=== PATIENT | female | born 1965 | race Caucasian/White ===

== ENCOUNTER 2017-02-09 16:42 | Emergency (ER) | payer BC ==
[2017-02-09] MEDS ORDERED: KETOROLAC TROMETHAMINE 60 MG/2 ML VIAL IM ONE ×2 (17:27→17:39)
--- NOTE | 2017-02-09 17:34 | ERNOTE ---
Abdominal HPI - Narrative Date of Service: 02/09/17 - General Chief Complaint: Abdominal Pain Time Seen by Provider: 02/09/17 17:08 Source: patient Exam Limitations: no limitations - Immun/Allergies/Home Medications Immunizatons: IMMUNIZATION HX Immunizations Up to Date Yes History of Influenza Vaccine No Allergies/Adverse Reactions: Allergies No Known Allergies Allergy (Verified 02/09/17 17:04) Home Medications: HOME MEDICATIONS Naproxen [Naprosyn] 500 mg PO BID PRN #60 tab 02/09/17 [Last Taken Unknown] - History of Present Illness Narrative: Pt. comes in with c/o burning with urination, decreased output, frequency, and abdominal pain that worsens with lying flat. Pt. denies any CP, SOB, vomiting, diarrhea, constipation, fever, alleviating factors despite going to the walk in clinic and getting treatment for a UTI just prior to arrival. Review of Systems - Review of Systems Constitutional: Present: no symptoms reported. Absent: recent illness, fever, chills, weakness, fatigue, malaise EYE: Present: no symptoms reported ENT: Present: no symptoms reported Respiratory: Present: no symptoms reported. Absent: shortness of breath, cough , wheezing Cardiology: Present: no symptoms reported. Absent: chest pain, palpitations, edema Gastrointestinal/Abdominal: Present: nausea, abdominal pain - suprapubic radiates to upper, other - distention. Absent: vomiting, diarrhea, constipation - LBM today Genitourinary: Present: no symptoms reported. Absent: frequency, pain, dysuria , decreased urinary output Musculoskeletal: Present: no symptoms reported. Absent: back pain, joint pain Skin: Present: no symptoms reported Neurological: Present: no symptoms reported. Absent: headache, dizziness/light- headedness, weakness, numbness All Other Systems: All systems neg except as marked - Patient's Past Medical History Patient History - Medical: No pertinent hx Patient History - Cardiac/Respiratory: No pertinent hx Patient History - Cancer: No Hx of Cancer Patient History - Surgical Procedures: LMP (females 10-50): Menopausal - Social History Living Situations: spouse Psych History: No pertinent hx Smoking Status: Never smoker - Immunizations Immunizations Up to Date: Yes History of Influenza Vaccine: No Physical Exam - Physical Exam General Appearance: Present: wd/wn, alert, no apparent distress Eye Exam: Normal inspection: bilateral, PERRL: bilateral, EOMI: bilateral Ears, Nose, Throat: Present: normal ENT inspection, normal pharynx Neck: Present: normal inspection, nontender. Absent: lymphadenopathy (R), lymphadenopathy (L) Respiratory: Present: no respiratory distress, normal breath sounds, no accessory muscle use, chest nontender, lungs clear Cardiovascular/Chest: Present: regular rate, rhythm, no murmur, normal peripheral pulses Gastrointestinal/Abdominal: Present: normal bowel sounds, no organomegaly, tenderness - Suprapubic, distended - mild Back Exam: Present: normal inspection, normal range of motion, no CVA tenderness , no vertebral tenderness Extremity Exam: Present: normal inspection, non-tender, normal range of motion, no edema Neurological Exam: Present: alert, oriented, normal mood/affect, no motor/ sensory deficits, 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 Absent: pallor, skin rash ED Progress - Date and Time Seen: Date and Time: 02/09/17 22:[address] Curran and he feels that pt. needs treatment at [facility] and that I should consult them for further treatment plan as this could be cancerous. 02/09/17 23:[address] Sullivan at [facility] and she states that they will coordinate getting her scheduled for Biopsies, follow up appointments and more labs and imaging this week and call pt. to set up these appointments. - Results and Orders Patient's Lab Results:: I have reviewed the patient's lab results. - Vital Signs Patient's Vital Signs:: I have reviewed the patient's vital signs. Vital Signs: Vital Signs 02/09/17 16:56 Temperature 36.7 C Pulse Rate 97 Respiratory 16 Rate Blood Pressure 166/97 O2 Sat by Pulse 100 Oximetry - EKG EKG: other - sinus tach no acute EKG read: Reviewed by me EKG Comments: interp by dr bell - CT/Ultrasound CT/Ultrasound Narrative: 13.2 x 10.8 x 9.6 cm septated left pelvic cystic mass dispplacing the urinary bladder which is extremely distended. Bilateral ureterectasis. - Progress/Reassessment Chief Complaint: Abdominal Pain Progress:: Pain free at discharge Departure - Departure Clinical Impression: Pelvic mass, Bladder outflow obstruction Disposition: Home self-care Condition: Good Instructions: [place] Catheter Care, Adult, Pelvic Mass Additional Instructions: [facility] will call you with follow up for this week if catheter stops working or you have problems until your follow up please return here. Prescriptions: Naproxen [Naprosyn] 500 mg PO BID PRN #60 tab PRN Reason: Pain
--- OUTSIDE RECORDS SUMMARY | 2017-02-09 17:39 | XMS REPORT | Continuity of Care Document ---
:1965 Author Organization [facility] ([facility]) Address [place] [address] Phone [phone] Care Team Providers Name Role Phone Provider, No-Primary Care Primary Care Provider Unavailable Source Comments This disclosure is being made pursuant to the Care Everywhere program, applicable federal and state laws, and may not contain all informaitonavailable regarding this patient.[facility] ([facility]) Active Allergies and Adverse Reactions Not on File Current Medications Prescription Sig. Disp. Refills Start Date End Date Status ACETAMINOPHEN (TYLENOL Take by mouth as 01/28/2010 Active PO) needed. ciprofloxacin (CIPRO) Take 1 Tab by mouth 2 20 Tab 0 01/28/2010 Active 500 mg tablet times daily. Indications: canaliculitis erythromycin 5 mg/gram instill onto the 3.5 g 2 01/28/2010 Active (0.5 %) ophthalmic left eye 3 times ointment daily. Instill into left eye for 10 days, three times per day Indications: canaliculitis Active Problems Not on file Social History Tobacco Use Types Packs/Day Years Used Date Never Smoker Alcohol Use Drinks/Week oz/Week Comments No Last Filed Vital Signs Vital Sign Reading Time Taken Blood Pressure 158/91 01/28/2010 9:59 AM CDT Pulse 98 01/28/2010 9:59 AM CDT Temperature - - Respiratory Rate - - Height - - Weight - - Body Mass Index - - Oxygen Saturation - - Plan of Care Health Maintenance Due Date Last Done Comments HCV Screening 1965 Hepatitis B Vaccine (1 of 3 - Primary Series) 1965 Tdap Vaccine 1974 Lipid Disorder Screening 1981 MMR Vaccine 1981 Td Vaccine 1981 Cervical Cancer Screening 1993 Mammogram 2003 Colonoscopy 01/10/2013 Influenza Vaccine: Seasonal (#1) 04/20/2016 Results from Last 3 Months Not on file
[2017-02-09 17:51] LABS: Hematocrit 40.6 % (37.0-47.0); Hemoglobin 13.5 gm/dL (12.5-16.0); Mean Corpuscular Hemoglobin 28.6 pg (27-31); Mean Corpuscular Hgb Conc 33.3 g/dl (32-36); Mean Platelet Volume 9.8 fl (6.0-9.5); Neutrophil # 7.7 K/mm3 (1.3-6.0); Neutrophil % 68.2 % (42-75.0); Platelet Count 341 K/mm3 (150-450); Red Blood Count 4.72 M/mm3 (4.2-5.4); Red Cell Distribution Width 14.6 % (11.5-14.0); White Blood Count 11.3 K/mm3 (4.0-10.5)
[2017-02-09 18:04] LABS: Albumin * 4.4 gm/dl (3.4-5.0); Anion Gap 15.2 mmol/L (6.8-13.8); BUN/Creatinine Ratio 16.9 (9.0-21.6); Bilirubin, Total 0.5 mg/dL (0.0-1.1); Ca. Corrected For Albumin 9.1 mg/dL (8.4-10.2); Calcium * 9.7 mg/dL (7.9-10.9); Carbon Dioxide 25.3 mmol/L (24-32.6); Potassium 3.5 mmol/L (3.4-4.6); Total Protein 8.3 gm/dL (6.2-8.2)
[2017-02-09 18:43] LABS: Urine Bilirubin Negative (NEGATIVE); Urine Blood Negative /ul (NEGATIVE); Urine Ketone Negative (NEGATIVE); Urine Nitrite Negative (NEGATIVE); Urine Protein Negative (NEGATIVE); Urine Specific Gravity <=1.005 SP.GR. (1.005-1.010); Urine Urobilinogen Normal (NORMAL)
[2017-02-09 18:52] LABS: Urine Appearance Clear; Urine Bacteria 2+; Urine Color Yellow; Urine WBC 0-5 /hpf (0-5)
[2017-02-09 18:53] LABS: Urine Amorphous Sediment Many - 3+ (NONE-FEW); Urine RBC None Seen /hpf (0-5); Urine Yeast Few - 1+
[2017-02-09] MEDS ORDERED: DIATRIZOATE MEGLU/DIATRIZO SOD 30 ML BTL ONE (19:43)
[2017-02-09] MEDS ORDERED: DIATRIZOATE MEGLU/DIATRIZO SOD 30 ML BTL PO ONE (19:50)
[2017-02-09 23:42] VITALS: BP 141/72
== END 2017-02-09 23:38 | disposition home or self-care (01) ==
LOC: ER 16:42
DX: R19.00 Intra-abdominal and pelvic swelling, mass and lump, unspecified site (principal); N32.0 Bladder-neck obstruction